=== PATIENT | female | born 1980 | race Caucasian/White ===

== ENCOUNTER 2021-03-21 18:51 | Emergency (ER) | payer OTHER | END 2021-03-21 19:20 | disposition left against medical advice (07) | LOC: ER 18:51 | DX: F15.10 Other stimulant abuse, uncomplicated (principal) ==

== ENCOUNTER 2021-05-14 01:25 | Emergency (ER) | payer OTHER ==
[~2021-05-14] VITALS: Ht 162.6 cm; Wt 55.8 kg
--- NOTE | ~2021-05-14 | EMS ---
[facility] [address] [place] [address] EMS Patient Care Report Name: BROCK MIJARES Room #: DEP PILO Casanova#: [id number] Admission: 05/14/21 Attend Phys: Discharge: 05/14/21 Date of : [birth year] Report #: [id number] THIS REPORT FOR: //name// Report Transmitted: 05/15/2021 07:57 EMS Care Summary [place], [place] Incident [id number] @ 05/14/2021 00:54 Incident Location [address] [place] [address] Patient BROCK MIJARES Female, 40 Years 1980 Patient Address [address] [place] [address] Patient History Substance Abuse,Bipolar II Disorder,Schizophrenia,Anxiety, Patient Allergies Codeine,Other drug allergy, Patient Medications Ativan, Chief Complaint CHEST PAIN Disposition Transported No Lights/[place] Dispatch Reason Chest Pain (Non-Traumatic) Transported To [facility] Narrative M41 DISPATCHED TO CHEST PAIN WITH P45. M41 AOS AND FOUND A FEMALE PT SITTING ON THE CURB OF [facility] WITH P45. SHE STATES THAT SHE IS HOMELESS AND HAS BEEN WALKING AROUND ALL DAY AND HER CHEST [facility] [address] [place] [address] EMS Patient Care Report Name: BROCK MIJARES Room #: DEP PILO Casanova#: [id number] Admission: 05/14/21 Attend Phys: Discharge: 05/14/21 Date of : [birth year] Report #: [id number] STARTED HURTING. SHE RATES THE PAIN A 9/10 AND STATES ITS ON THE L SIDE OF HER CHEST. THE PT DENIES ANY OTHER COMPLAINTS. PT WALKED TO THE AMBULANCE. VITALS OBTAINED. BGA OBTAINED. IV ACCESS OBTAINED. 4 AND 12 LEAD OBTAINED WHICH WERE UNREMARKABLE. PT GIVEN 324MG ASA PO. M[address] [facility]. EN ROUTE PT REMAINED STABLE. REPORT GIVEN TO RN [facility]. SIGATURES OBTAINED. TRANSFER OF CARE TOOK PLACE. 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 Vitals @01:19P: 88,BP: 97/64,CO: 4,SpO2: 98, @01:16P: 93,NH Suspected: false @01:15P: 86, @01:14P: 83,R: 18,BP: 104/69,Pain: 8/10,GCS: 15,Glucose: 100,CO: 2,SpO2: 98,Revised Trauma: 12, @01:24P: 83,R: 18,BP: 91/60,Pain: 8/10,GCS: 15,CO: 6,SpO2: 98,Revised Trauma: 12, Assessments @01:07MENTAL:Place Oriented,Person Oriented,Time Oriented,Event Oriented,SKIN:HEENT:Head/Face: No Abnormalities,Neck/Airway: No Abnormalities,LUNG SOUNDS:General: No Abnormalities,ABDOMEN:General: No Abnormalities,PELVIS//GI:No Abnormalities,EXTREMITIES:Capillary Refill: Right Upper: < 2 Sec,Left Arm: No Abnormalities,Right Arm: No Abnormalities,Left Leg: No Abnormalities,Right Leg: No Abnormalities,PULSE:Radial: 2+ Normal,NEURO:No Abnormalities, Impression Chest Pain / Discomfort Procedures @01:07ALS AssessmentResponse: UnchangedSucceeded@01:15Saline Lock 8cc (18 ga) Site: Antecubital-LeftResponse: UnchangedSucceeded@01:1612-Lead ECGResponse: UnchangedSucceeded@01:17Aspirin - 324 Milligrams (mg) - OralResponse: Unchanged Timeline 00:53,Call Received [facility] [address] [place] [address] EMS Patient Care Report Name: BROCK MIJARES Room #: DEP PILO Casanova#: [id number] Admission: 05/14/21 Attend Phys: Discharge: 05/14/21 Date of : [birth year] Report #: [id number] 00:53,Dispatch Notified 00:54,Dispatched 00:55,En Route 01:06,On Scene 01:07,At Patient 01:07,ALS Assessment,Response: UnchangedSucceeded, 01:14,BP: 104/69 M,PULSE: 83,RR: 18 R,SPO2: 98 Ox,ETCO2: ,B,PAIN: 8,GCS: 15, 01:15,Saline Lock 8cc 18 ga Site: Antecubital-Left,Response: UnchangedSucceeded, 01:15,BP: / M,PULSE: 86,RR: R,SPO2: Ox,ETCO2: ,BG: ,PAIN: ,GCS: , 01:16,12-Lead ECG,Response: UnchangedSucceeded, 01:16,BP: / M,PULSE: 93,RR: R,SPO2: Ox,ETCO2: ,BG: ,PAIN: ,GCS: , 01:17,Depart Scene 01:17,Aspirin - 324 Milligrams (mg) - Oral,Response: Unchanged 01:19,BP: 97/64 M,PULSE: 88,RR: R,SPO2: 98 Ox,ETCO2: ,BG: ,PAIN: ,GCS: , 01:23,At Destination 01:24,BP: 91/60 M,PULSE: 83,RR: 18 R,SPO2: 98 Ox,ETCO2: ,BG: ,PAIN: 8,GCS: 15, 01:38,Call Closed Disclaimer v1.1 Copyright 2020 [employer] This EMS Care Summary contains data elements from the applicable legal record (which may be displayed differently). It is designed to provide pertinent information for the following purposes: continuity of care, clinical quality, and state data reporting. The complete legal record is available to ED staff and administrators of the receiving hospital in [employer] Patient Tracker. All data is provided "as is."
== END 2021-05-14 01:43 | disposition left against medical advice (07) ==
LOC: ER 01:25
DX: R07.89 Other chest pain (principal); Z53.21 Procedure and treatment not carried out due to patient leaving prior to being seen by health care provider

== ENCOUNTER 2021-11-14 14:34 | Emergency (ER) | payer OTHER ==
[~2021-11-14] VITALS: Ht 160 cm; Wt 49.9 kg
--- NOTE | ~2021-11-14 | EMS ---
[facility] [address] [place] [address] EMS Patient Care Report Name: BROCK MIJARES Room #: DEP PILO Casanova#: [id number] Admission: 11/14/21 Attend Phys: Discharge: 11/14/21 Date of : [birth year] Report #: [id number] THIS REPORT FOR: //name// Report Transmitted: 11/18/2021 13:07 EMS Care Summary [place], [place] Incident [id number] @ 11/14/2021 14:06 Incident Location [address] [place] [address] Patient BROCK MIJARES Female, 41 Years 1980 Patient Address Homeless [place] [phone] Patient History None Reported, Patient Allergies No known allergies, Patient Medications None Reported, Chief Complaint TROUBLE BREATHING Disposition Transported No Lights/[place] Dispatch Reason Breathing Problem Transported To [facility] Narrative PT FOUND SITTING ON SIDEWALK NEXT TO ROAD. PD AND P45 ON SCENE. PD STATES THEY FOUND PT LYING ON SIDEWALK AND WHEN THEY WOKE HER UP SHE STATES THAT SHE WAS HAVING TROUBLE BREATHING. PT IS ABLE TO SPEAK IN FULL SENTENCES AND HAS NO APPARENT OUTWARD WOB. PT ABLE TO SMOKE A CIGARETTE W/O DIFFICULTY. PT TALK AND [facility] [address] [place] [address] EMS Patient Care Report Name: BROCK MIJARES Room #: DEP ER Edilberto#: [id number] Admission: 11/14/21 Attend Phys: Discharge: 11/14/21 Date of : [birth year] Report #: [id number] ARGUES W/ MULTIPLE PEOPE THAT ARE NOT W/ HER OR IN THE AMBULANCE. PT UNABLE TO ANSWER ANY EMS QUESTIONS CORRECTLY. PT NON AGGRESSIVE W/ EMS. PT HAS NO VISIBLE TRAUMA. PT HAS NO COMPLAINTS OF PAIN, SOB, CP OR TRAUMA. NO CHANGES NOTED ENROUTE. Initial Vitals @14:20P: 96,R: 18,BP: 142/92,Pain: 0/10,GCS: 15,SpO2: 96,Revised Trauma: 12, Assessments @14:15MENTAL:Hallucinations,SKIN:No Abnormalities,HEENT:Head/Face: No Abnormalities,LUNG SOUNDS:General: No Abnormalities,ABDOMEN:General: No Abnormalities,PELVIS//GI:No Abnormalities,EXTREMITIES:PULSE:NEURO:No Abnormalities, Impression Behavioral/psychiatric episode Procedures @14:15 ALS Assessment Response: UnchangedSucceeded Timeline 14:05,Call Received 14:05,Dispatch Notified 14:06,Dispatched 14:06,En Route 14:15,At Patient 14:15,On Scene 14:15,ALS Assessment,Response: UnchangedSucceeded, 14:20,Depart Scene 14:20,BP: 142/92 M,PULSE: 96,RR: 18 R,SPO2: 96 Ox,ETCO2: ,BG: ,PAIN: 0,GCS: 15, 14:28,At Destination 14:37,Call Closed Disclaimer v1.1 Copyright 2021 [employer] This EMS Care Summary contains data elements from the applicable legal record (which may be displayed differently). It is designed to provide pertinent information for the following purposes: continuity of care, clinical quality, and state data reporting. The complete legal record is available to ED staff and administrators of the receiving hospital in [employer]'s Patient Tracker. All data is provided "as is."
== END 2021-11-14 14:58 | disposition left against medical advice (07) ==
LOC: ER 14:34
DX: R06.02 Shortness of breath (principal); F15.10 Other stimulant abuse, uncomplicated; Z88.0 Allergy status to penicillin; Z88.8 Allergy status to other drugs, medicaments and biological substances

== ENCOUNTER 2021-11-14 22:23 | Emergency (ER) | payer OTHER ==
[~2021-11-14] VITALS: Ht 162.6 cm; Wt 58.1 kg
--- NOTE | ~2021-11-14 | EMS ---
[address] [address] EMS Patient Care Report Name: BROCK MIJARES Room #: DEP PILO Casanova#: [id number] Admission: 11/14/21 Attend Phys: Discharge: 11/15/21 Date of : [birth year] Report #: [id number] THIS REPORT FOR: //name// Report Transmitted: 11/18/2021 13:06 EMS Care Summary [place], [place] Incident [id number] @ 11/14/2021 22:06 Incident Location [address] [place] [address] Patient BROCK MIJARES Female, 41 Years 1980 [place] [address] Patient History None Reported, Patient Allergies No known allergies, Patient Medications None Reported, Chief Complaint BILATERAL HAND PAIN Disposition Transported No Lights/[place] Dispatch Reason Psychiatric Problem/Abnormal Behavior/Suicide Attempt Transported To [facility] Narrative PT FOUND STANDING ON SIDEWALK NEXT TO BUILDING. PD ON SCENE. PD STATES THAT PT TOLD THEM HER HANDS HURT AND SHE WANTS AN AMBULANCE. PT WAS JUST BROUGHT TO THE ER BY EMS EARLIER IN THE DAY. PT STATES THAT HER HANDS HURT BUT WILL NOT ELABORATE. PT HAS AUDITORY AND VISUAL HALLUCINATIONS AND TALK AND ARGUES W/ [facility] [address] [place] [address] EMS Patient Care Report Name: BROCK MIJARES Room #: DEP ER Edilberto#: [id number] Admission: 11/14/21 Attend Phys: Discharge: 11/15/21 Date of : [birth year] Report #: [id number] MULTIPLE NON EXISISTENT PEOPLE ENROUTE TO HOSP. PT HAS NO VISIBLE TRAUMA. PT HAS NO COMPLAINTS OF PAIN, SOB, CP OR TRAUMA. NO CHANGES NOTED ENROUTE. Initial Vitals @22:16P: 96,R: 16,BP: 136/90,Pain: 4/10,GCS: 15,Revised Trauma: 12, Assessments @22:15MENTAL:No Abnormalities,SKIN:No Abnormalities,HEENT:Head/Face: No Abnormalities,LUNG SOUNDS:General: No Abnormalities,ABDOMEN:General: No Abnormalities,PELVIS//GI:No Abnormalities,EXTREMITIES:PULSE:NEURO:No Abnormalities, Impression Extremity Pain Procedures @22:14 ALS Assessment Response: UnchangedSucceeded Timeline 22:05,Call Received 22:05,Dispatch Notified 22:06,Dispatched 22:08,En Route 22:13,On Scene 22:14,At Patient 22:14,ALS Assessment,Response: UnchangedSucceeded, 22:16,Depart Scene 22:16,BP: 136/90 M,PULSE: 96,RR: 16 R,SPO2: Ox,ETCO2: ,BG: ,PAIN: 4,GCS: 15, 22:20,At Destination 22:27,Call Closed Disclaimer v1.1 Copyright 2021 [employer] This EMS Care Summary contains data elements from the applicable legal record (which may be displayed differently). It is designed to provide pertinent information for the following purposes: continuity of care, clinical quality, and state data reporting. The complete legal record is available to ED staff and administrators of the receiving hospital in [facility]'s Patient Tracker. All data is provided "as is."
== END 2021-11-15 00:10 | disposition left against medical advice (07) ==
LOC: ER 22:23
DX: F15.10 Other stimulant abuse, uncomplicated (principal); Z88.0 Allergy status to penicillin; Z88.5 Allergy status to narcotic agent; Z88.1 Allergy status to other antibiotic agents

== ENCOUNTER → 2021-11-14 | Emergency (ER) | payer OTHER ==
[~2021-11-14] VITALS: Ht 160 cm; Wt 49.9 kg
[~2021-11-14] MED LIST: LORAZEPAM 1 MG T1 MG PO
--- NOTE | ~2021-11-14 | EMS ---
[address] [address] EMS Patient Care Report Name: BROCK MIJARES Room #: REG PILO Casanova#: [id number] Admission: 11/14/21 Attend Phys: Discharge: Date of : [birth year] Report #: [id number] THIS REPORT FOR: //name// Report Transmitted: 11/18/2021 13:07 EMS Care Summary [place], [place] Incident [id number] @ 11/14/2021 01:48 Incident Location [facility] [address] Patient BROCK MIJARES Female, 41 Years 1980 Patient Address [place] [phone] Patient History None Reported, Patient Allergies No known allergies, Patient Medications None Reported, Chief Complaint PT IS COLD Disposition Transported No Lights/[place] Dispatch Reason Sick Person Transported To [facility] Narrative M41 DISPATCHED TO [facility] FOR A SICK PERSON. M41 AOS AND FOUND A FEMALE PT WHO WAS WITH PD. SHE STATES THAT SHE IS HOMELESS AND HAS COLD HANDS AND FEET. PT IS ACTING VERY STRANGE. PT WAS UNCOOPERATIVE AND WOULD NOT STOP MOVING. PT WAS AOX4. [address] [address] EMS Patient Care Report Name: BROCK MIJARES Room #: REG PILO Casanova#: [id number] Admission: 11/14/21 Attend Phys: Discharge: Date of : [birth year] Report #: [id number] PT WALKED TO THE AMBULANCE. VITALS OBTAINED. M[address] [facility]. EN ROUTE PT REMAINED STABLE. REPORT GIVEN TO SCOTT REDDY. SIGNATURES OBTAINED. TRANSFER OF CARE TOOK PLACE. 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 @02:03P: 86,R: 18,BP: 152/95,Pain: 0/10,GCS: 15,SpO2: 98,Revised Trauma: 12, Assessments @02:04MENTAL:Other,Time Oriented,Person Oriented,Event Oriented,Place Oriented,SKIN:HEENT:Head/Face: No Abnormalities,Neck/Airway: No Abnormalities,LUNG SOUNDS:General: No Abnormalities,ABDOMEN:General: No Abnormalities,PELVIS//GI:No Abnormalities,EXTREMITIES:Capillary Refill: Right Upper: < 2 Sec,Left Leg: Other,Right Leg: Other,Right Arm: Other,Left Arm: Other,PULSE:Radial: 2+ Normal,NEURO:No Abnormalities, Impression Hypothermia Procedures @02:04 ALS Assessment Response: UnchangedSucceeded Timeline 01:48,Call Received 01:48,Dispatch Notified 01:48,Dispatched 01:49,En Route 01:54,On Scene 01:55,At Patient 02:01,Depart Scene 02:03,BP: 152/95 M,PULSE: 86,RR: 18 R,SPO2: 98 Ox,ETCO2: ,BG: ,PAIN: 0,GCS: 15, 02:04,ALS Assessment,Response: UnchangedSucceeded, 02:10,At Destination 02:19,Call Closed [facility] [address] [place] [address] EMS Patient Care Report Name: BROCK MIJARES Room #: REG PILO Casanova#: [id number] Admission: 11/14/21 Attend Phys: Discharge: Date of : [birth year] Report #: [id number] Disclaimer v1.1 Copyright 2021 [employer] This EMS Care Summary contains data elements from the applicable legal record (which may be displayed differently). It is designed to provide pertinent information for the following purposes: continuity of care, clinical quality, and state data reporting. The complete legal record is available to ED staff and administrators of the receiving hospital in [employer]'s Patient Tracker. All data is provided "as is."
[2021-11-14 06:45] VITALS: BP 132/78
== END ==
LOC: ER 02:11
DX: F15.10 Other stimulant abuse, uncomplicated (principal); Z59.00 Homelessness unspecified

== ENCOUNTER 2021-11-15 07:02 | Emergency (ER) | payer OTHER ==
[~2021-11-15] VITALS: Ht 165.1 cm; Wt 65.8 kg
--- NOTE | ~2021-11-15 | EMS ---
[facility] [address] [place] [address] EMS Patient Care Report Name: BROCK MIJARES Room #: DEP PILO Casanova#: [id number] Admission: 11/15/21 Attend Phys: Discharge: 11/15/21 Date of : [birth year] Report #: [id number] THIS REPORT FOR: //name// Report Transmitted: 11/18/2021 13:10 EMS Care Summary [place], [place] Incident [id number] @ 11/15/2021 06:46 Incident Location [address] Patient BROCK MIJARES Female, 41 Years 1980 Patient Address [place]eless [place] [phone] Patient History None Reported, Patient Allergies No known allergies, Patient Medications None Reported, Chief Complaint Emotional state Disposition Transported No Lights/[place] Dispatch Reason Breathing Problem Transported To [facility] Narrative Dispatched to a place of business in regards to a respiratory distress. On arrival, i saw patient sitting by the main entrance with Police officers. Initial assessment revealed that patient was A&Ox1 and appeared to be maintaining her own airway. Patient's chief complaint was dyspnea. Law enforcement stated that they had placed patient under arrest due to warrants [address] [address] EMS Patient Care Report Name: BROCK MIJARES Room #: DEP PILO Casanova#: [id number] Admission: 11/15/21 Attend Phys: Discharge: 11/15/21 Date of : [birth year] Report #: [id number] and patient became erratic. Patient was assisted to our cot inside the ambulance and secured. Vital signs was unable to be obtained do to patient refusal. Physical assessment revealed patient was pink warm and dry. Patient was transported to [facility] and radio report was given en route. Patient care was transferred on arrival. Initial Vitals @07:11GCS: 14, Assessments @06:59MENTAL:Person Oriented,SKIN:HEENT:LUNG SOUNDS:ABDOMEN:PELVIS//GI:EXTREMITIES:PULSE:NEURO:No Abnormalities, Impression Behavioral/psychiatric episode Procedures @06:55 ALS Assessment Response: UnchangedSucceeded Timeline 06:45,Call Received 06:45,Dispatch Notified 06:46,Dispatched 06:46,En Route 06:51,On Scene 06:52,At Patient 06:55,ALS Assessment,Response: UnchangedSucceeded, 06:58,Depart Scene 07:00,At Destination 07:11,BP: / M,PULSE: ,RR: R,SPO2: Ox,ETCO2: ,BG: ,PAIN: ,GCS: 14, 07:15,Call Closed Disclaimer v1.1 Copyright 2021 [employer] This EMS Care Summary contains data elements from the applicable legal record (which may be displayed differently). It is designed to provide pertinent information for the following purposes: continuity of care, clinical quality, and state data reporting. The complete legal record is available to ED staff and administrators of the receiving hospital in [employer]'s Patient Tracker. All data is provided "as is."
[2021-11-15 07:10] VITALS: BP 93/74
== END 2021-11-15 07:24 ==
LOC: ER 07:02
DX: R06.00 Dyspnea, unspecified (principal); R45.1 Restlessness and agitation; Z88.0 Allergy status to penicillin; Z88.5 Allergy status to narcotic agent; Z88.8 Allergy status to other drugs, medicaments and biological substances

== ENCOUNTER 2021-12-01 03:53 | Emergency (ER) | payer OTHER ==
[~2021-12-01] VITALS: Ht 162.6 cm; Wt 57.6 kg
[2021-12-01] MEDS ORDERED: NOHOMEMEDICATIONS (04:11)
[2021-12-01 06:45] LABS: ABSOLUTE NEUTROPHILS 4.6 thou/uL (1.4-8.2); BASOPHILS 0.9 % (0.0-2.0); EOSINOPHILS 2.3 % (0.0-3.0); HEMATOCRIT 34.9 % (37.0-47.0); HEMOGLOBIN 11.4 gm/dL (12.0-15.0); LYMPHOCYTES 29.1 % (24.0-44.0); MCH 28.3 pg (26.0-34.0); MCHC 32.6 g/dL (28.0-37.0); MCV 86.9 fL (80.0-100.0); MONOCYTES 7.7 % (1.0-8.0); PLATELET COUNT 358 thou/uL (150-400); RBC 4.01 mil/uL (4.20-5.00); RDW 13.9 % (10.5-14.5); WBC 7.7 thou/uL (4.0-11.0)
[2021-12-01 06:47] LABS: ANION GAP 8 mmol/L (7-16); BUN 29 mg/dL (7-18); CALCIUM 8.4 mg/dL (8.5-10.1); CHLORIDE 102 mmol/L (98-107); CO2 28 mmol/L (21-32); CREATININE 0.8 mg/dL (0.6-1.0); GLUCOSE 120 mg/dL (74-106); SODIUM 138 mmol/L (136-145)
[2021-12-01 06:53] LABS: SGOT 14 U/L (15-37); SGPT 21 U/L (30-65); TOTAL BILIRUBIN 0.1 mg/dL (0.2-1.0); TOTAL PROTEIN 6.2 g/dL (6.4-8.2)
[2021-12-01 07:00] LABS: SALICYLATE < 2.8 mg/dL (2.8-20.0)
[2021-12-01 07:03] LABS: URINE BILIRUBIN NEGATIVE (Negative); URINE BLOOD NEGATIVE (Negative); URINE CLARITY CLEAR; URINE COLOR YELLOW; URINE GLUCOSE-RANDOM* NEGATIVE (Negative); URINE KETONES NEGATIVE (Negative); URINE LEUKOCYTES-REFLEX NEGATIVE (Negative); URINE NITRITE-REFLEX NEGATIVE (Negative); URINE PROTEIN (DIPSTICK) NEGATIVE (Negative); URINE SPECIFIC GRAVITY 1.025 (1.005-1.035); URINE UROBILINOGEN 0.2 E.U./dl (0.2-1.0)
[2021-12-01 07:15] LABS: AMP/METHAMP POSITIVE (Negative); BARBITURATES Negative (Negative); BENZODIAZEPINES Negative (Negative); COCAINE Negative (Negative); METHADONE Negative (Negative); OPIATES Negative (Negative); PCP Negative (Negative)
--- NOTE | 2021-12-01 09:52 | EKG ---
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
[2021-12-01 11:53] VITALS: BP 91/51
== END 2021-12-01 12:04 | disposition home or self-care (01) ==
LOC: ER 03:53
PROVIDERS: Emergency Medicine
DX: F19.10 Other psychoactive substance abuse, uncomplicated (principal); Z20.822 Contact with and (suspected) exposure to COVID-19; F29 Unspecified psychosis not due to a substance or known physiological condition; F20.9 Schizophrenia, unspecified; Z88.0 Allergy status to penicillin